=== PATIENT | male | born 1985 | race African-American/Black ===

== ENCOUNTER 2020-03-08 21:01 | Emergency (ER) | payer MEDICAID ==
[~2020-03-08] VITALS: Ht 180.3 cm; Wt 84.8 kg
[2020-03-08 21:10] VITALS: Ht 180.3 cm; Wt 84.8 kg
[2020-03-08 22:00] LABS: BASOPHIL % 0.9 % (0-2); PLATELET COUNT 227 x10^3mcL (130-400); RED CELL DISTRIBUTION WIDTH 12.7 % (11.5-14.5)
[2020-03-08 22:10] LABS: CALCIUM 8.5 mg/dL (8.5-10.1); CARBON DIOXIDE 29.7 mmol/L (21-32); CHLORIDE SERUM 105 mmol/L (98-107); CREATININE SERUM 1.1 mg/dL (0.7-1.3); GFR1 > 60 mL/min; GLUCOSE SERUM 103 mg/dL (74-106); SODIUM SERUM 142 mmol/L (136-145)
[2020-03-08 22:15] LABS: ALBUMIN 3.6 g/dL (3.4-5.0); ALKALINE PHOSPHATASE 56 U/L (46-116); ALT/SGPT 54 U/L (16-63); AST/SGOT 46 U/L (15-37); BILIRUBIN TOTAL 0.3 mg/dL (0.20-1.00); TOTAL PROTEIN, SERUM 6.6 g/dL (6.4-8.2)
[2020-03-08 23:01] VITALS: BP 102/64
== END 2020-03-08 23:01 | disposition home or self-care (01) ==
LOC: ED 21:01
PROVIDERS: Emergency Medicine
DX: K62.5 Hemorrhage of anus and rectum (principal)
CPT/HCPCS: 36415